=== PATIENT | male | born 1975 | race Caucasian/White ===

== ENCOUNTER 2020-02-19 06:53 | Outpatient (NON) | payer OTHER, SELFPAY ==
[2020-02-20 01:48] LABS: SARS-CoV-2 RNA PCR Negative
== END 2020-02-19 06:54 ==
LOC: ANHCOVIDDT 07:23
PROVIDERS: PCP Family Medicine; Visit Provider Family Medicine
DX: R68.89 Other general symptoms and signs (principal); Z20.828 Contact with and (suspected) exposure to other viral communicable diseases
CPT/HCPCS: 87635; C9803; U0003

== ENCOUNTER → 2020-12-09 16:11 | Outpatient (CLI) | payer OTHER, SELFPAY ==
--- NOTE | ~2020-12-09 | XR_ITS ---
XR shoulder LT min 2V DATE: 12/09/2020 16:41 INDICATION: Left shoulder pain TECHNIQUE: 4 views COMPARISON: None FINDINGS: No fracture or dislocation, periosteal reaction or bone destruction or abnormal soft tissue calcification. Mild levoscoliosis of the upper thoracic spine. IMPRESSION: No significant abnormality of the left shoulder Reviewed, dictated and finalized at location A.
--- NOTE | ~2020-12-09 | XR_ITS ---
XR chest 2V DATE: 12/09/2020 16:41 INDICATION: Shortness of breath TECHNIQUE: 2 views COMPARISON: None FINDINGS: Normal heart size. No hilar or mediastinal enlargement. No pulmonary infiltrate or consolid ation, pleural effusion or pulmonary vascular congestion or pneumothorax. IMPRESSION: No active cardiopulmonary disease Reviewed, dictated and finalized at location A.
== END ==
PROVIDERS: PCP Family Medicine; Visit Provider Physician Assistant
DX: R06.02 Shortness of breath (principal); M25.512 Pain in left shoulder
CPT/HCPCS: 71046; 73030

== ENCOUNTER 2020-12-09 16:45 | Outpatient (CLI) | payer OTHER, SELFPAY ==
[2020-12-09 17:10] LABS: Basophils Absolute Auto 0.1 K/mm3 (0.0-0.1); Basophils Percent Auto 0.8 % (0.2-1.2); Eosinophils Absolute Auto 0.9 K/mm3 (0-0.3); Eosinophils Percent Auto 10.7 % (0-4.4); Hematocrit 44.7 % (42.0-52.0); Hemoglobin 15.4 g/dL (14.0-18.0); Immature Granulocyte Absolute 0.02 K/mm3 (0.00-0.031); Immature Granulocyte Percent A 0.3 % (0-0.5); Lymphocytes Absolute Auto 2.29 K/mm3 (0.9-3.2); Lymphocytes Percent Auto 28.7 % (18.3-44.2); Mean Corpuscular HGB Conc 34.5 g/dl (32-36); Mean Corpuscular Hemoglobin 31.6 pg (26-34); Mean Corpuscular Volume 91.8 fl (80-100); Monocytes Absolute Auto 0.6 K/mm3 (0.1-0.6); Neutrophils Absolute Auto 4.1 K/mm3 (1.3-6.7); Neutrophils Percent Auto 51.5 % (45.5-73.1); Platelet Count Result 246 k/mm3 (150-375); Red Blood Count 4.87 M/mm3 (4.6-6.20); Red Cell Distribution Width 12.6 % (11.5-14.5)
[2020-12-09 17:20] LABS: Alanine Aminotransferase 21 U/L (4-50); Albumin Level 4.2 g/dL (3.5-5.1); Alkaline Phosphatase 52 U/L (38-126); Anion Gap 9 mmol/L (8-16); Aspartate Amino Transferase 34 U/L (17-59); Bilirubin,Total 0.6 mg/dL (0.2-1.3); Blood Urea Nitrogen 18 mg/dL (9-20); Calcium 9.1 mg/dL (8.4-10.2); Carbon Dioxide 26 mmol/L (22-30); Chloride 104 mmol/L (98-107); Cholesterol 124 mg/dL (0-200); Estimated Glomerular Filt Rate > 60; Glucose 87 mg/dL (65-110); HDL Direct 49 mg/dL; Potassium 4.4 mmol/L (3.4-5.0); Sodium 139 mmol/L (137-145); Triglycerides 50 mg/dL (<150)
[2020-12-09 17:30] LABS: LDL Cholesterol Direct 51 mg/dL
== END 2020-12-09 16:46 | disposition home or self-care (01) ==
PROVIDERS: PCP Family Medicine; Visit Provider Physician Assistant
DX: I10 Essential (primary) hypertension (principal); J45.41 Moderate persistent asthma with (acute) exacerbation; R06.02 Shortness of breath; Z00.00 Encounter for general adult medical examination without abnormal findings; Z13.220 Encounter for screening for lipoid disorders
CPT/HCPCS: 36415; 80053; 80061; 84443; 85025

== ENCOUNTER 2021-03-14 00:56 | Day surgery (SDC) | payer OTHER, SELFPAY ==
[2021-03-09 16:09] VITALS: BMI 28.3
--- NOTE | 2021-03-09 16:21 | PC.NURSE ---
Report to the Outpatient Waiting Room, entrance under the green pavilion located off [facility], at time _1030 on date _05/15/20 . OR Time: __1230 . - You and your visitor will be asked a series of questions to screen for COVID 19 for your protection. - A mask is required within the hospital. - Only one visitor is allowed at this time. Patient visitors will be guided where to wait when not with patient. Preoperative COVID Testing Requirements: No COVID Test needed if: (proof is required; if not received patient will have Rapid Test prior to entry) - Patient has received COVID Vaccine at least 14 days prior to procedure date or - Patient has positive COVID test result within last 90 days of surgery date. COVID Test needed if above criteria is not met If not COVID vaccinated a COVID test must be conducted within 72 hours of surgery and patient is asked to isolate self from time of testing until procedure. You will go to the [facility] for your COVID testing. The [facility] site is located at the corner of [address] [facility]. You will only be called if COVID results are positive and your surgeon may reschedule your elective surgery date. Patients may have clear liquids (water, carbonated beverages, clear teas, apple juice) until 3 hours prior to surgery with a maximum of 20 ounces. - No food from midnight until time of surgery - Infants may have breast milk until 4 hours before surgery, formula 6 hours prior to surgery. - Children will be allowed to drink immediately following surgery. If applicable, please bring a bottle or sippy cup to assist with drinking. Juice, water, soda, and popsicles are readily available. For infants on formula, please bring formula the day of surgery. Pacifiers are allowed. Take the following medications with a SIP of water the morning of surgery: _ADVAIR DISKUS, ALBUTEROL INHALER PRN, FLONASE INHALER PRN Medications to discontinue per physician ALL NSAIDS/IBUPROFEN 7 DAYS PREOP Date to take last dose NOW, 03/09/21 Please no make-up, nail ugandan, hairspray, perfume, deodorant, or body powder the day of surgery. No jewelry (including any body piercings) or valuables the day of surgery, leave them at home. Please take a shower or bath the night before, or the morning of, surgery with an antibacterial soap. Wear comfortable, loose fitting clothing. Children are encouraged to wear pajamas. - Jewelry must be removed prior to entering the operating room. Rings and piercings that are not removed may be cut off. - The hospital will not accept responsibility for valuables. - Please leave all valuables, including medications, at home the day of surgery. If you are going home after surgery, a licensed bus driver/monitor must drive you home. - NO public transportation without another adult. - We recommend that an adult stay with you for 24 hours following discharge. - We also recommend that you do not drive, make important decision, drink alcoholic beverages, or take any drugs that were not prescribed by your health care provider for at least 24 hours after your discharge time. For Pediatric surgeries, we recommend two adults accompany the child home (only one inside the building at this time). Follow any additional instructions given to you from your surgeon. Telephone instructions given to ___PATIENT and asked if any additional questions and then verbalized understanding. Patient advised to call surgeon office or pre surgery nurse liaison [phone] if any additional questions.
[2021-03-14] VITALS (7 sets, daily range): BP systolic 115–141; BP diastolic 66–78; PULSE 48–74; RESP 10–20; TEMP 36.4–36.6; O2SAT 95–99; BMI 29.7
--- NOTE | 2021-03-14 09:04 | P.PNAN_ITS ---
Anes - Initial Pre Proc Eval Procedure: Operation Date: 03/14/21 12:30 Proposed Procedures p Left Shoulder Arthroscopic Subacromial Decompression Distal Clavicle Excision - Mark Borges MD Date/Time: 03/14/21 09:04 Surgeon: Mark Borges MD Pre Op Diagnosis: Impingement Syndrome Left Shoulder Patient Data Age: 45 Gender: M Height: 1.88 m Weight: 100 kg Allergies Allergy/AdvReac Type Severity Reaction Status Date / Time No Known Allergies Allergy Verified 03/14/21 10:39 Home Medications Medication Instructions Recorded Confirmed Type cetirizine 10 mg tablet 10 mg PO DAILY PRN 02/16/19 03/09/21 History fluticasone propionate 50 1 spray NASAL DAILY PRN 02/16/19 03/09/21 History mcg/actuation nasal spray,suspension albuterol sulfate 90 mcg/actuation 2 puff INHALATION Q4H PRN #8.5 g 12/09/20 03/09/21 Rx aerosol inhaler fluticasone propion-salmeterol 1 inh INHALATION QAM 03/09/21 03/14/21 History [Advair Diskus] ibuprofen-diphenhydramine HCl 2 cap PO HS PRN 03/09/21 03/09/21 History [Ibuprofen PM] montelukast 10 mg PO DAILY 03/09/21 03/09/21 History Patient hx anesthesia problems: none Family hx anesthesia problems: none Results Review: All pre-operative results and documents have been reviewed as part of the pre-operative evaluation. [facility] Past Medical History Medical History (Updated 03/14/21 @ 09:05 by Dharmesh Padilla MD) Allergic asthma History of rotator cuff strain BL Left medial knee pain Meniscal injury Overweight (BMI 25.0-29.9) Surgical History Surgical History History of surgical removal of meniscus of knee Social History Social History Social History: Smoking status: Never smoker Second hand tobacco smoke exposure: No Alcohol intake: current Drinks per week: 2 Alcohol use details: Occasionally Substance use: never Substance use type: does not use Living arrangements: with family Additional living arrangements comments: SPOUSE Gender identity (if verbalized by the patient): Male Sexual Orientation (if Verbalized by the Patient): Straight or Heterosexual Spiritual care concerns: No Anes - Eval Final PreProcedure Day of Procedure 03/14/21 09:04 Patient weight: overweight Heart: regular rate and rhythm Lungs: clear to auscultation and normal air movement Airway: Mallampati scale class II Neurological: alert and oriented Last oral intake: >/= 8 hours ASA classification: II Emergent: no Anesthetic plan: proceed Anesthesia type and monitoring: general ETT Results Review: All pre-operative results and documents have been reviewed as part of the pre-operative evaluation. Informed Consent: The patient's anesthetic plan and its attendant risks and benefits were discussed with the patient/family/POA. Questions were solicited and answers provided to the satisfaction of the patient/family/POA.
--- NOTE | 2021-03-14 09:05 | WPDANESPNB ---
Anes - Peripheral Nerve Block Date/Time: 03/14/21 09:05 I have discussed with the patient/family/POA the placement of a peripheral nerve block for post-operative pain management, including associated risks, benefits, complications, and side effects. Alternative methods of post-operative analgesia were detailed. Questions were solicited and answers provided to the satisfaction of the patient/family/POA. Time-Out: A pre-procedural Time-Out was completed immediately before starting the procedure and confirmed: Patient Identification, Site, Procedure, Patient Position and the Availability of Requisite Equipment. Clinical Indications: Acute post-operative pain management requested by the operative surgeon. Nerve Block Insertion Note Anes-nerve block: supraclavicular left Patient position: supine Skin prep: chlorhexidine Needle: 22 gauge, stimulating, insulated echogenic needle. Needle length: 80 mm Technique: ultrasound (in plane) Injectate: bupivacaine 0.5% with epi 5 mcg/ml (20cc) Observations: tolerated well Complications: none Procedure start time:: 1110 Procedure end time:: 1115
--- NOTE | 2021-03-14 10:16 | WPDHPUPDATE1 ---
History and Physical Update Update Date/Time: 03/14/21 10:16 History and Physical has been reviewed, including an updated exam of the patient. There are NO changes in the patient's condition. Risks, benefits, and alternatives have been discussed and questions answered. Patient agrees to proceed with procedure.
[2021-03-14] MEDS: LACTATED RINGERS 1,000 ML 30 ML IV CONT ×2 (11:08→13:09)
[2021-03-14] MEDS: KETOROLAC 15 MG/ML VIAL (*BKC) IV PUSH (11:09)
[2021-03-14] MEDS: ACETAMINOPHEN 500 MG TABLET 1000 MG PO (11:09)
[2021-03-14] MEDS: ceFAZolin 2 GM/D5W 50 ML 2 GM/50 ML BAG IVPB (11:20)
[2021-03-14] MEDS: BUPIVACAINE HCL 0.5% PF 30 ML VIAL INFILTRATE (12:08)
--- NOTE | 2021-03-14 13:17 | SUR.PHASEI ---
REPORT TO Jose FAM RN
--- NOTE | 2021-03-14 14:19 | W.PM.PROC2 ---
Procedure Note - Detailed Date of Procedure 03/14/21 Pre-op Diagnosis 1.Impingement Syndrome Left Shoulder 2. Acromioclavicular joint arthrosis. Post-op Diagnosis same Procedure Performed 1. Arthroscopic distal clavicle excision 2. Arthroscopic subacromial decompression Surgeon Mark Borges MD Irrigation Tax Assessor Collector Maryuri Bustos PA-C Anesthesia general and regional ( interscalene block) Indications Persistent pain at the AC joint. 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 Also subacromial impingement with type 2 acromion. Description of Procedure Preoperative antibiotics were given. An interscalene block was administered in the preoperative area. The patient was bought brought to the operating room. A general anesthetic was administered. The patient was carefully positioned in the beach chair position. The head and neck were carefully positioned. The non operative extremity was also carefully positioned. The shoulder was prepped and draped in the usual sterile fashion. Examination was performed. Standard posterior and anterior arthroscopic portals were established. Inflow achieved with the arthroscopic pump using saline and epinephrine. The glenohumeral joint was carefully inspected. There were no significant findings. Attention was turned to the subacromial space. A complete bursectomy was performed. The rotator cuff appeared normal. The downsloping acromion was treated with acromioplasty. The acromioclavicular joint was exposed with the radiofrequency probe and approximately 8-12 mm of distal clavicle was excised with the arthroscopic bur. Particular care and attention was paid to the superior ligaments which were carefully cleared of any bony remnants. The arthroscopic instruments were removed. The wounds were closed with 3-0 Monocryl subcuticular suture and steri strips. There were no complications. A sling was applied and the patient brought to the recovery room. Physician insurance account assistant, Maryuri Bustos PA-C, required for surgery; including patient positioning, draping, arthroscopic camera operation, maintaining instrument position,[ suture retrieval,] wound closure, and dressing and sling placement. Estimated Blood Loss 5 Pathology none sent Complications No immediate complications Condition stable Disposition PACU
== END 2021-03-14 14:55 | disposition home or self-care (01) ==
PROVIDERS: PCP Family Medicine; Visit Provider Orthopaedic Surgery
PROC: (CPT 29805; principal; 2021-03-14 12:30)
DX: M75.42 Impingement syndrome of left shoulder (principal); M19.012 Primary osteoarthritis, left shoulder; G89.18 Other acute postprocedural pain; J45.909 Unspecified asthma, uncomplicated; Z79.51 Long term (current) use of inhaled steroids
CPT/HCPCS: 29826; 29824; 64415; A4565; A9270; J0690; J1100; J1885; J2250; J2405; J2704; J2710; J3010; J7120

== ENCOUNTER 2021-06-20 15:56 | Outpatient (CLI) | payer OTHER, SELFPAY ==
--- NOTE | ~2021-06-20 | CT_ITS ---
EXAMINATION: CTA chest PE protocol DATE: 06/20/2021 16:43 INDICATION: Hypoxemia. TECHNIQUE: Computed tomography angiography (CTA) of the chest was performed with 100 mL Omnipaque-350 intravenous contrast timed to evaluate the pulmonary arteries. Coronal maximum intensity projection 3D-reconstructions were created by the technologist. Automated exposure control and iterative reconst ruction technique were employed. The dose-length product was 519.84 mGy-cm. COMPARISON: None. FINDINGS: There is mild scarring at the lung apices. There is mild atelectasis bilaterally. There is material in the bronchi in the lower lobes and lingula. There are areas of air-trapping in the lower lobes. No pleural effusion. The heart size is normal. No pericardial effusion. There is no pulmonary embolus. There is mild thoracic spondylosis. IMPRESSION: 1. No pulmonary embolus. 2. Material in the bronchi in the lower lobes and lingula, which may be mucous plugging or aspirated material. Reviewed, dictated and finalized at location A.
== END 2021-06-20 15:57 | disposition home or self-care (01) ==
PROVIDERS: PCP Family Medicine; Visit Provider Family Medicine
DX: R09.02 Hypoxemia (principal)
CPT/HCPCS: 71275; Q9967

== ENCOUNTER 2021-11-01 09:17 | Outpatient (CLI) | payer OTHER, SELFPAY ==
--- NOTE | 2021-11-01 15:00 | WPDPFTINT ---
PFT Procedure Performed PFT Procedure Performed Spirometry with Pre/Post Bronchodilator Plethysmography (Lung Vol) Diffusing Cap (DLCO) Flow Vol Loop PFT Interpretation Lung volumes were measured with the body plethysmography method. Lung volumes are unremarkable. Spirometry showed normal expiratory flow rates and a normal FEV1 to FVC ratio 72%. Following administration of a bronchodilator, there was no significant increase in the expiratory flow rates. Lung diffusion capacity is within the normal range. Flow volume loop is unremarkable. Impression: Spirometry, lung volumes, and lung diffusion capacity all within the normal range
== END 2021-11-01 09:18 | disposition home or self-care (01) ==
PROVIDERS: PCP Family Medicine; Visit Provider Internal Medicine Pulmonary Disease
DX: R06.00 Dyspnea, unspecified (principal)
CPT/HCPCS: 94060; 94726; 94729

== ENCOUNTER 2022-06-20 15:16 | Outpatient (CLI) | payer OTHER, SELFPAY ==
[2022-06-23 20:04] LABS: Immunoglobulin A 399 mg/dL (47-310); Immunoglobulin G 868 mg/dL (600-1640); Immunoglobulin M 57 mg/dL (50-300)
== END 2022-06-20 15:17 | disposition home or self-care (01) ==
LOC: ANHLAB 15:17
PROVIDERS: Visit Provider Physician Assistant
DX: J32.9 Chronic sinusitis, unspecified (principal)
CPT/HCPCS: 36415; 82784

== ENCOUNTER 2022-06-26 15:06 | Outpatient (CLI) | payer OTHER, SELFPAY ==
[2022-06-26 15:24] LABS: Basophils Absolute Auto 0.1 K/mm3 (0.0-0.1); Basophils Percent Auto 0.9 % (0.2-1.2); Eosinophils Absolute Auto 0.3 K/mm3 (0-0.3); Eosinophils Percent Auto 4.5 % (0-4.4); Hematocrit 43.4 % (42.0-52.0); Hemoglobin 14.6 g/dL (14.0-18.0); Immature Granulocyte Absolute 0.01 K/mm3 (0.00-0.031); Immature Granulocyte Percent A 0.2 % (0-0.5); Lymphocytes Absolute Auto 2.23 K/mm3 (0.9-3.2); Lymphocytes Percent Auto 34.3 % (18.3-44.2); Mean Corpuscular HGB Conc 33.6 g/dl (32-36); Mean Corpuscular Hemoglobin 30.9 pg (26-34); Mean Corpuscular Volume 91.8 fl (80-100); Mean Platelet Volume 9.9 fl (7.4-10.4); Monocytes Absolute Auto 0.5 K/mm3 (0.1-0.6); Monocytes Percent Auto 7.8 % (2.6-8.5); Neutrophils Absolute Auto 3.4 K/mm3 (1.3-6.7); Neutrophils Percent Auto 52.3 % (45.5-73.1); Platelet Count Result 251 k/mm3 (150-375); Red Blood Count 4.73 M/mm3 (4.6-6.20); Red Cell Distribution Width 12.5 % (11.5-14.5); White Blood Count 6.5 K/mm3 (4.5-10.0)
== END 2022-06-26 15:07 | disposition home or self-care (01) ==
PROVIDERS: Visit Provider Physician Assistant
DX: J45.909 Unspecified asthma, uncomplicated (principal)
CPT/HCPCS: 36415; 85025

== ENCOUNTER 2022-08-01 07:35 | Outpatient (CLI) | payer OTHER, SELFPAY ==
[2022-08-01 08:32] LABS: Alanine Aminotransferase 25 U/L (6-50); Albumin Level 4.1 g/dL (3.5-5.1); Alkaline Phosphatase 50 U/L (38-126); Anion Gap 6 mmol/L (8-16); Aspartate Amino Transferase 36 U/L (17-59); Bilirubin,Total 0.7 mg/dL (0.2-1.3); Blood Urea Nitrogen 15 mg/dL (9-20); Calcium 8.6 mg/dL (8.4-10.2); Carbon Dioxide 27 mmol/L (22-30); Chloride 103 mmol/L (98-107); Cholesterol 137 mg/dL (0-200); Estimated Glomerular Filt Rate > 60; Glucose 96 mg/dL (65-110); HDL Direct 47 mg/dL; Potassium 4.1 mmol/L (3.4-5.0); Sodium 136 mmol/L (137-145); Triglycerides 59 mg/dL (<150)
[2022-08-01 08:44] LABS: LDL Cholesterol Direct 64 mg/dL
== END 2022-08-01 07:36 | disposition home or self-care (01) ==
PROVIDERS: PCP Family Medicine; Visit Provider Family Medicine
DX: E78.2 Mixed hyperlipidemia (principal); I10 Essential (primary) hypertension; B35.1 Tinea unguium
CPT/HCPCS: 36415; 80053; 80061

== ENCOUNTER 2022-09-07 02:55 | Day surgery (SDC) | payer OTHER, SELFPAY ==
[2022-08-29 13:08] VITALS: BMI 28.3
--- NOTE | 2022-09-06 09:22 | PM.HPGS ---
History of Present Illness History of Present Illness Consent: Risks, benefits, and alternatives have been discussed and questions answered. Patient agrees to proceed with procedure. Chief complaint: neoplasm screening Narrative: Bello Mahajan is a 46 year old male referred for colon cancer screening. 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 Orthopedic aftercare Other specified arthritis, left shoulder Overweight (BMI 25.0-29.9) Seborrheic keratosis Tendinitis of left rotator cuff Surgical History Surgical History History of surgical removal of meniscus of knee Social History Social History Social History: Smoking status: Never smoker Second hand tobacco smoke exposure: No Alcohol intake: current Drinks per week: 1 Alcohol use details: Occasionally Substance use: never Substance use type: does not use Lack of Transportation: No Lack of Food: Never True Current Housing: I Have Housing Concerned About Future Housing: No Difficulty Paying Gas/Electric Bills: No Difficulty Paying for Meds: No Currently Unemployed: No Education: Decline to Answer Difficulty w/ Childcare or Family Care: No Living arrangements: with family Additional living arrangements comments: SPOUSE Occupation/Education: occupation Gender identity (if verbalized by the patient): Male Sexual Orientation (if Verbalized by the Patient): Straight or Heterosexual Spiritual care concerns: No Meds Home Medications and Allergies Home Medications Medication Instructions Recorded Confirmed Type celecoxib 200 mg capsule 200 mg PO DAILY #90 caps 05/15/21 08/29/22 Rx cetirizine 10 mg capsule (Zyrtec) 10 mg PO DAILY PRN allergies 06/20/22 08/29/22 History fluticasone propionate 50 1 spray intranasal DAILY 06/20/22 08/29/22 History mcg/actuation nasal spray,suspension (Flonase Allergy Relief) fluticasone fur. 200 mcg-umeclid 1 inh inhalation DAILY 08/22/22 08/29/22 History 62.5 mcg-vilant 25 mcg inhalat.powder (Trelegy Ellipta) terbinafine HCl 250 mg tablet 250 mg PO DAILY 08/22/22 08/29/22 History Allergies Allergy/AdvReac Type Severity Reaction Status Date / Time No Known Allergies Allergy Verified 09/07/22 10:45 Exam Resp: Auscultation: clear to auscultation bilaterally Cardio: Rate: regular rate Rhythm: regular rhythm GI: GI Palp: Yes Soft to palpation and No Tenderness to palpation present (GI) Assessment and Plan Assessment and plan (1) Colon cancer screening: Code(s): Z12.11 - Encounter for screening for malignant neoplasm of colon Status: Acute Assessment and Plan: Colonoscopy with possible biopsy or polypectomy or cautery or injection of substances.
[2022-09-07 10:13] VITALS: BP 121/48; PULSE 61; RESP 20; TEMP 36.4; O2SAT 99
[2022-09-07] MEDS: LACTATED RINGERS 1,000 ML 150 ML IV CONT (10:56)
--- NOTE | 2022-09-07 10:57 | WPDANESEPPF ---
Anes - Initial Pre Proc Eval Procedure: Operation Date: 09/07/22 11:30 Proposed Procedures p Screening Colonoscopy - Homer Naidu MD Date/Time: 09/07/22 10:57 Surgeon: Homer Naidu MD Pre Op Diagnosis: neoplasm screening Patient Data Age: 46 Gender: M Height: 1.88 m Weight: 100.9 kg Last Vital Signs Temp 36.4 C 09/07/22 10:13 Pulse 61 09/07/22 10:13 Resp 20 09/07/22 10:13 BP 121/48 L 09/07/22 10:13 Pulse Ox 99 09/07/22 10:13 O2 Del Method Room Air 09/07/22 10:13 Allergies Allergy/AdvReac Type Severity Reaction Status Date / Time No Known Allergies Allergy Verified 09/07/22 10:45 Home Medications Medication Instructions Recorded Confirmed Type celecoxib 200 mg capsule 200 mg PO DAILY #90 caps 05/15/21 08/29/22 Rx cetirizine 10 mg capsule (Zyrtec) 10 mg PO DAILY PRN allergies 06/20/22 08/29/22 History fluticasone propionate 50 1 spray intranasal DAILY 06/20/22 08/29/22 History mcg/actuation nasal spray,suspension (Flonase Allergy Relief) fluticasone fur. 200 mcg-umeclid 1 inh inhalation DAILY 08/22/22 08/29/22 History 62.5 mcg-vilant 25 mcg inhalat.powder (Trelegy Ellipta) terbinafine HCl 250 mg tablet 250 mg PO DAILY 08/22/22 08/29/22 History Patient hx anesthesia problems: none Family hx anesthesia problems: none Results Review: All pre-operative results and documents have been reviewed as part of the pre-operative evaluation. 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 Orthopedic aftercare Other specified arthritis, left shoulder Overweight (BMI 25.0-29.9) Seborrheic keratosis Tendinitis of left rotator cuff Surgical History Surgical History History of surgical removal of meniscus of knee Social History Social History Social History: Smoking status: Never smoker Second hand tobacco smoke exposure: No Alcohol intake: current Drinks per week: 1 Alcohol use details: Occasionally Substance use: never Substance use type: does not use Lack of Transportation: No Lack of Food: Never True Current Housing: I Have Housing Concerned About Future Housing: No Difficulty Paying Gas/Electric Bills: No Difficulty Paying for Meds: No Currently Unemployed: No Education: Decline to Answer Difficulty w/ Childcare or Family Care: No Living arrangements: with family Additional living arrangements comments: SPOUSE Occupation/Education: occupation Gender identity (if verbalized by the patient): Male Sexual Orientation (if Verbalized by the Patient): Straight or Heterosexual Spiritual care concerns: No Anes - Eval Final PreProcedure Day of Procedure 09/07/22 10:57 Patient weight: overweight Heart: regular rate and rhythm Lungs: clear to auscultation and normal air movement Airway: Mallampati scale class II Neurological: alert and oriented Last oral intake: >/= 8 hours ASA classification: II Emergent: no Anesthetic plan: proceed Anesthesia type and monitoring: general GIVS Results Review: All pre-operative results and documents have been reviewed as part of the pre-operative evaluation. Informed Consent: The patient's anesthetic plan and its attendant risks and benefits were discussed with the patient/family/POA. Questions were solicited and answers provided to the satisfaction of the patient/family/POA.
[2022-09-07 11:41] VITALS: BP 100/70; PULSE 69; RESP 15; O2SAT 99
[2022-09-07 11:51] VITALS: BP 121/82; PULSE 66; RESP 24; O2SAT 97
[2022-09-07 12:01] VITALS: BP 122/84; PULSE 68; RESP 20; O2SAT 97
== END 2022-09-07 12:07 | disposition home or self-care (01) ==
PROVIDERS: PCP Family Medicine; Visit Provider Internal Medicine Gastroenterology
PROC: 0DJD8ZZ Inspection of Lower Intestinal Tract, Via Natural or Artificial Opening Endoscopic (ICD-10-PCS; CPT 45378; principal; 2022-09-07 11:30)
DX: Z12.11 Encounter for screening for malignant neoplasm of colon (principal); J45.909 Unspecified asthma, uncomplicated; M15.9 Polyosteoarthritis, unspecified; Z79.51 Long term (current) use of inhaled steroids
CPT/HCPCS: 45378; J2704; J7120

== ENCOUNTER 2022-10-26 09:34 | Outpatient (CLI) | payer OTHER, SELFPAY ==
--- NOTE | 2022-10-26 09:57 | ECHO_ITS ---
Patient Info Name: Bello Mahajan Age: 46 years : 1975 Gender: Male Ht: 74 in Wt: 225 lbs BSA: 2.33 m2 HR: 51 bpm BP: 118 / 68 mmHg Technical Quality: Good Exam Date: 10/26/2022 10:07 AM Exam Location: [facility] Patient Status: Outpatient Admit Date: 10/26/2022 Staff Ordering Physician: Batsheva Covarrubias PA-C Lift Supervisor: Valerie Momin RDCS Attending Provider: Batsheva Covarrubias PA-C Exam Type: CA echo doppler color flow Study Info Indications R06.02 - Shortness of breath Complete two-dimensional, color flow and Doppler transthoracic echocardiogram is performed. Summary 1. Complete two-dimensional, color flow and Doppler transthoracic echocardiogram is performed. 2. Left ventricular chamber dimension is mildly enlarged. 3. Left ventricular systolic function is normal, estimated at 60-65%. 4. The left ventricular diastolic function is normal. 5. E/e' 4 is not elevated. 6. Right atrial chamber dimension is mildly enlarged. 7. There is mild mitral valve regurgitation. 8. There is trace tricuspid valve regurgitation. 9. No pulmonary hypertension, estimated pulmonary arterial systolic pressure is 30 mmHg. 10. There is trace pulmonic regurgitation. Left Ventricle E/e' 4 is not elevated. Left ventricular chamber dimension is mildly enlarged. Left ventricular systolic function is normal, estimated at 60-65%. The left ventricular diastolic function is normal. Right Ventricle Right ventricular chamber dimension is normal. Right ventricular systolic function is normal. Left Atria Left atrial chamber dimension is normal. Right Atria Right atrial chamber dimension is mildly enlarged. Aortic Valve The aortic valve is trileaflet. There is no aortic valve stenosis. There is no aortic valve regurgitation. Pulmonic Valve There is trace pulmonic regurgitation. Mitral Valve There is no mitral valve stenosis. There is mild mitral valve regurgitation. Tricuspid Valve There is trace tricuspid valve regurgitation. No pulmonary hypertension, estimated pulmonary arterial systolic pressure is 30 mmHg. Pericardium/Pleural There is no pericardial effusion. Inferior Vena Cava Normal inferior vena cava with >50% collapse upon inspiration consistent with normal right atrial pressure, 5 mmHg. Aorta The aortic root size at the sinus of Valsalva is normal. Left Ventricular Outflow Tract Name Value Normal LVOT 2D LVOT Diameter 2.2 cm LVOT Doppler LVOT Peak Gradient 4 mmHg LVOT Mean Gradient 3 mmHg LVOT VTI 25 cm LVOT VTI/AV VTI Ratio 0.9 LVOT Stroke Volume 92 ml LVOT CO 17.1 l/min LVOT CI 7.3 l/min/m2 Pulmonic Valve Name Value Normal RVOT Doppler RVOT Peak Gradient 1 mmHg PV Doppler ---
== END 2022-10-26 09:35 | disposition home or self-care (01) ==
LOC: ANHCARD 09:35
PROVIDERS: PCP Family Medicine; Visit Provider Physician Assistant
DX: R06.02 Shortness of breath (principal); I34.0 Nonrheumatic mitral (valve) insufficiency
CPT/HCPCS: 93306

== ENCOUNTER 2022-11-19 16:26 | Outpatient (CLI) | payer OTHER, SELFPAY ==
[2022-11-19 17:01] LABS: Alanine Aminotransferase 23 U/L (6-50); Aspartate Amino Transferase 44 U/L (17-59)
== END 2022-11-19 16:27 | disposition home or self-care (01) ==
LOC: ANHLAB 16:27
PROVIDERS: PCP Family Medicine; Visit Provider Podiatrist Foot & Ankle Surgery
DX: B35.1 Tinea unguium (principal)
CPT/HCPCS: 36415; 84450; 84460

== ENCOUNTER 2025-03-13 16:10 | Emergency (ER) | payer OTHER, SELFPAY ==
--- OUTSIDE RECORDS SUMMARY | 2024-06-17 11:30 | XMS_ITS ---
Author Organization [facility] [place] ([address]) Address [address] [place] [address] Care Team Providers Care Skilled Trades Teacher Name Role Phone Dr. Tricia Mccabe Primary Care Provider Un available Diana Luo Unavailable [phone] REASON FOR VISIT SCIT (Aeroallergen) Encounters Encounter Location Date Provider Diagnosis [facility] [address] [place] [address] 06/17/2024 Diana Luo Plan Of Treatment No Information Progress Notes * Aaron IBARRAOB:1975 (49 yo M)Acc No.[id number]:06/17/2024 SCIT-Aeroallergen Patient: Bello COOPER Provider: Heidi Luo MD :1975 A ge:48 Y S ex:Male Date:06/17/2024 Address:[address] [place] [id number] Pcp:Dr. Tricia Mccabe Subjective: * Chief Complaints: * 1 . SCIT (Aeroallergen). * Medical History: Objective: * Vitals: Assessment: Plan: * Treatment: * Billing Information: * Visit Code: * Procedure Codes: * Electronic signature of Natayla Luo MD on 03/13/2025 at 06:04 PM UNLOADING CHECKER Sign off status: Pending * Provider: Heidi Luo MD Date: 0 06/17/2024 Generated for Ede mccray/Johnny/Ranjan on: 1 05/14/2024 06:04 PM UNLOADING CHECKER
--- OUTSIDE RECORDS SUMMARY | 2024-07-29 10:00 | XMS_ITS ---
Author Organization [facility] [place] ([address]) Address [address] [facility] [address] [place] [address] Care Team Providers Care Statuary Painter Name Role Phone Dr. Tricia Mccabe Primary Care Provider Un available Diana Luo Unavailable [phone] REASON FOR VISIT SCIT - Traditional Schedule Allergy Immunotherapy Encounters Encounter Location Date Provider Diagnosis [facility] [address] [facility] [address] [place] [address] 07/29/2024 Diana Luo Allergic rhinitis du e to pollen J30.1 ; Other allergic rhinitis J30.89 ; Allergic rhinitis due to animal (cat) (dog) hair and dander J30.81 and Other chronic allergic conjunctivitis H10.45 Assessments Encounter Date Diagnosis (ICD Code) Assessment Notes Treatment Notes Treatment Clinical Notes Section Notes 07/29/2024 Allergic rhinitis due to pollen (ICD-10 - J30.1) 07/29/2024 Other allergic rhinitis (ICD-10 - J30.89) 07/29/2024 Allergic rhinitis due to animal (cat) (dog) hair and dander (ICD-10 - J30.81) 07/29/2024 Other chronic allergic conjunctivitis (ICD-10 - H10.45) Plan Of Treatment Next Appt Details Follow Up: As scheduled, Jovana son: Progress Notes * Aaron IBARRAOB:1975 (49 yo M)Acc No.[id number]:07/29/2024 SCIT-Aeroallergen Patient: Bello COOPER Provider: Heidi Luo MD :1975 A ge:48 Y S ex:Male Date:07/29/2024 Address:[address] [place], [place] [phone] Pcp:Dr. Tricia Mccabe Subjective: * Chief Complaints: * 1 . SCIT - Traditional Schedule Allergy Immunotherapy. * HPI: * Introduction: The patient is here for scheduled immunotherapy. Please see the attached specialty form regarding the specifics of the administration of these vaccines. As per our protocol, they must undergo a screening health questionnaire (medication changes, reaction(s) to last immunotherapy dose(s), current health status, ACT (if appropriate), self-injectable epinephrine on patient(?) and peak flow (if appropriate)). Also, the patient must wait in our office for 30 minutes after receiving the vaccine(s). Furthermore, every patient must have an epinephrine pen (self-injectable) with them at the time of administration--and carry if for the following 1.5 hours after they leave our office. The patient must also have taken their antihistamine the day of the injection, preferably 2 hours prior. The consent form for SCIT (subcutaneous immunotherapy) is on file. * Medical History: Objective: * Vitals: Assessment: * Assessment: 1. A llergic rhinitis due to pollen - J30.1 (Primary) 2 . O ther allergic rhinitis - J30.89 3 . A llergic rhinitis due to animal (cat) (dog) hair and dander - J30.81 4 . O ther chronic allergic conjunctivitis - H10.45 Plan: * Treatment: * Procedure Codes: 9 5117 IMMUNOTHERAPY INJECTIONS * Preventive Medicine: Counseling: E xercise A void heavy lifting on days of allergy immunotherapy. M edication instruction: I njectable epinephrine education and instruction w/ discussion of signs and symptoms of anaphylaxis and reasons to seek urgent or emergent care, Watch for side effects of prescribed medications. E ducation: A ble to return demonstration of self-injectable epinephrine. * Follow Up: A s scheduled * Billing Information: * Visit Code: * Procedure Codes: 00259 IMMUNOTHERAPY INJECTIONS. * Electronic signature of Natalya Luo MD on 03/13/2025 at 06:04 PM AUCTION ASSISTANT Sign off status: Pending * Provider: Heidi Luo MD Date: 0 07/29/2024 Generated for Ede mccray/Johnny/Ranjan on: 1 05/14/2024 06:04 PM AUCTION ASSISTANT History and Physical Notes * HPI (History of Present Illness) Category Sub-Category Detail Notes Category Not es *Introduction The patient is here for scheduled immunotherapy. Please see the attached specialty form regarding the specifics of the administration of these vaccines. As per our protocol, they must undergo a screening health questionnaire (medication changes, reaction(s) to last immunotherapy dose(s), current health status, ACT (if appropriate), self-injectable epinephrine on patient(?) and peak flow (if appropriate)). Also, the patient must wait in our office for 30 minutes after receiving the vaccine(s). Furthermore, every patient must have an epinephrine pen (self-injectable) with them at the time of administration--and carry if for the following 1.5 hours after they leave our office. The patient must also have taken their antihistamine the day of the injection, preferably 2 hours prior. The consent form for SCIT (subcutaneous immunotherapy) is on file.
--- OUTSIDE RECORDS SUMMARY | 2024-11-26 11:30 | XMS_ITS ---
Author Organization [facility] [place] ([address]) Address [address] [place] [address] Care Team Providers Care Digital Sales Director Name Role Phone Dr. Tricia Mccabe Primary Care Provider Un available Diana Luo Unavailable [phone] REASON FOR VISIT SCIT (Aeroallergen) Encounters Encounter Location Date Provider Diagnosis [facility] [address] [place] [address] 11/26/2024 Diana Luo Plan Of Treatment No Information Progress Notes * Aaron IBARRAOB:1975 (49 yo M)Acc No.[id number]:11/26/2024 SCIT-Aeroallergen Patient: Bello COOPER Provider: Heidi Luo MD :1975 A ge:48 Y S ex:Male Date:11/26/2024 Address:[address] [place] [phone] Pcp:Dr. Tricia Mccabe Subjective: * Chief Complaints: * 1 . SCIT (Aeroallergen). * Medical History: Objective: * Vitals: Assessment: Plan: * Treatment: * Billing Information: * Visit Code: * Procedure Codes: * Electronic signature of Natalya Luo MD on 03/13/2025 at 06:04 PM MACHINE CERAMIC COATER Sign off status: Pending * Provider: Heidi Luo MD Date: 0 11/26/2024 Generated for Ede mccray/Johnny/Ranjan on: 1 05/14/2024 06:04 PM MACHINE CERAMIC COATER
--- OUTSIDE RECORDS SUMMARY | 2024-12-01 10:10 | XMS_ITS ---
Author Organization [facility] [place] ([address]) Address [address] [facility] [address] [place] [address] Care Team Providers Care Patients Transporter Name Role Phone Dr. Tricia Mccabe Primary Care Provider Un available Diana Luo Unavailable [phone] REASON FOR VISIT SCIT - Traditional Schedule Allergy Immunotherapy Encounters Encounter Location Date Provider Diagnosis [facility] [address] [facility] [address] [place] [address] 12/01/2024 Diana Luo Allergic rhinitis du e to pollen J30.1 ; Other allergic rhinitis J30.89 ; Allergic rhinitis due to animal (cat) (dog) hair and dander J30.81 and Other chronic allergic conjunctivitis H10.45 Assessments Encounter Date Diagnosis (ICD Code) Assessment Notes Treatment Notes Treatment Clinical Notes Section Notes 12/01/2024 Allergic rhinitis due to pollen (ICD-10 - J30.1) 12/01/2024 Other allergic rhinitis (ICD-10 - J30.89) 12/01/2024 Allergic rhinitis due to animal (cat) (dog) hair and dander (ICD-10 - J30.81) 12/01/2024 Other chronic allergic conjunctivitis (ICD-10 - H10.45) Plan Of Treatment Next Appt Details Follow Up: As scheduled, Jovana son: Progress Notes * Aaron IBARRAOB:1975 (49 yo M)Acc No.[id number]:12/01/2024 SCIT-Aeroallergen Patient: Bello COOPER Provider: Heidi Luo MD :1975 A ge:48 Y S ex:Male Date:12/01/2024 Address:[address] [place], [place] [phone] Pcp:Dr. Tricia Mccabe Subjective: * Chief Complaints: [...] Information: * Visit Code: * Procedure Codes: 41809 IMMUNOTHERAPY INJECTIONS. * Electronic signature of Natalya Luo MD on 03/13/2025 at 06:04 PM VOTING MACHINE MECHANIC Sign off status: Pending * Provider: Heidi Luo MD Date: 0 12/01/2024 Generated for Ede mccray/Johnny/Ranjan on: 1 05/14/2024 06:04 PM VOTING MACHINE MECHANIC History and Physical Notes * HPI (History [...]
--- NOTE | ~2025-03-13 | CT_ITS ---
EXAMINATION: CT lumbar spine wo con DATE: 03/13/2025 18:52 INDICATION: 49-year-old with low back pain. No history of trauma. TECHNIQUE: Computed tomography (CT) of the lumbar spine was performed without intravenous contrast. Automated exposure control and iterative reconstruction technique were employed. The dose-length product was 631.07 mGy-cm. COMPARISON: None FINDINGS: 5 nonrib-bearing lumbar segments are present. No acute bony lesions of lumbar vertebrae. Mild degenerative disc changes at L3- 4, L4-5 levels. Mild facet arthropathy at L4-5 level with bulging annulus causing mild to moderate bi-foraminal narrowing. Paravertebral soft tissues are unremarkable. IMPRESSION: 1. No acute or focal bone changes of lumbar vertebrae. For 2 mild degenerative disc changes and facet arthropathy as described above predominantly at L4-5 level mild to moderate bi-foraminal narrowing. 2. Paravertebral soft tissues do not show acute findings. Reviewed, dictated and finalized at location T. ER/WAITRESS TAKE OUT IMPRESSION: 1. No acute or focal bone changes of lumbar vertebrae. For 2 mild degenerative disc changes and facet arthropathy as described above predominantly at L4-5 lev el mild to moderate bi-foraminal narrowing. 2. Paravertebral soft tissues do not show acute findings.
[2025-03-13 16:27] VITALS: BP 125/81; PULSE 89; RESP 20; TEMP 36.8; O2SAT 100
--- NOTE | 2025-03-13 17:43 | PC.NURSE ---
patient has been taking mobic and tylenol without relief at home. patient has followed up with PCP and has been doing PT exercises.
--- OUTSIDE RECORDS SUMMARY | 2025-03-13 18:05 | XMS_ITS | Clinical Summary ---
Author Organization [facility] Address [address] [facility] [place] [address] Care Team Providers Care Certified Legal Investigator Name Role Phone [address] Primary Care Prov ider Source Comments [facility]non-owned Affiliates and Associated Physician Practices is amultiple site organization consisting of ambulatory clinics and hospital sitesin [place], [place], [place] and [place]. This disclosure is being madepursuant to the Care Everywhere program and may not contain all information available regarding this patient. Last updated 17.[facility] Allergies No known active allergies Medications * Be aware that medications may not be up to date on this document. Alwaysverify current medications with the patient. Acetaminophen (TYLENOL) 325 MG CAPS Take by mouth as needed Active hydrOXYzine hcl (ATARAX) 50 MG tablet Take 1 tablet by mouth 3 times daily as needed for Itching 30 tablet 03/10/2019 Active fluticasone-chelsey meterol (ADVAIR DISKUS) 500-50 MCG/DOSE inhaler 05/20/2020 Active montelukast (SINGULAIR) 10 MG tablet 11/19/2019 Active tacrolimus (PROTOPIC) 0.1 % ointment 05/20/2020 Active Active Problems Problem Noted Date Diagnosed Date Other and unspecified hyperlipidemia 11/08/2020 Overview (11/08/2020): -Mild HHLP noted on prior labs -no meds -will repeat labs for update -Mild HHLP noted on prior labs -no meds -will repeat labs for update Asthma 11/08/2020 Social History Tobacco Use Types Packs/Day Years Used Date Smoking Tobacco: Never Smokeless Tobacco: Never Alcohol Use Standard Drinks/Week Comments Yes 0 (1 standard drink = 0.6 oz pur e alcohol) occasional Sex and Gender Information Value Date Recorded Sex Assigned at Not on file Legal Sex Male 10:15 AM TOOL SMITH Gender Identity Not on file Sexual Orientation Not on file Last Filed Vital Signs Vital Sign Reading Time Taken Comments Blood Pressure 124/82 03/10/2019 10:32 AM TOOL SMITH Pulse 60 03/10/2019 10:32 AM TOOL SMITH Temperature 36.4 C (97.5 F) 03/10/2019 9:53 AM TOOL SMITH Respiratory Rate 16 03/10/2019 9:53 AM TOOL SMITH Oxygen Saturation 99% 03/10/2019 10:32 AM TOOL SMITH Inhaled Oxygen Concentration - - Weight 99.8 kg (220 lb) 11/08/2020 1:10 PM CDT Height 190.5 cm (6' 3) 11/08/2020 1:10 PM CDT Body Mass Index 27.5 11/08/2020 1:10 PM CDT Plan of Treatment Health Maintenance Due Date Last Done Comments COLOGUARD (AGES 45-75) - COLON CA SCREENING 1975 COLON MONITORING 1975 COLONOSCOPY - COLON CA SCREENING 1975 CT COLONOGRAPHY - COLON CA SCREENING 1975 Colorectal Cancer Screening 1975 FIT - COLON CA SCREENING 1973 FLEX SIG - COLON CA SCREENING 1975 LIPID TESTING 1975 HIV SCREENING 1988 HEPATITIS C SCREENING 11/28/1991 DTAP/TDAP/TD VACCINES (1 - Tdap) 1992 HEPATITIS B VACCINE (1 of 3 - 19+ 3-dose series) 1992 SCREENING FOR DIABETES 11/08/2020 PNEUMOCOCCAL VACCINE 50+ (1 of 1 - PCV) 12/03/2023 ZOSTER VACCINE (1 of 2) 12/03/2023 DEPRESSION SCREENING 03/25/2024 COVID-19 VACCINE (1 - 2024- season) 2024 INFLUENZA VACCINE (#1) 2024 7, 12/29/2013, 12/31/2012, Additional history exists HIB VACCINE Aged Out No longer eligi ble based on patient's age to complete this topic HPV VACCINE Aged Out No longer eligi ble based on patient's age to complete this topic MENINGOCOCCAL (Group B) VACCINE SHARED DECISION-MAKING Aged Out No longer eligible based on patient's age to complete this topic MENINGOCOCCAL GROUPS A/C/Y/W VACCINE Aged Out No longer eligible based on patient's age to complete this topic Insurance Care Teams Certified Legal Investigator Relationship Specialty [facility] [address] [place], [place] [address] PCP - General Family Medicine 03/03/19
--- OUTSIDE RECORDS SUMMARY | 2025-03-13 18:05 | XMS_ITS | Patient Health Record ---
Author Organization [facility] [place] ([address]) Address [address] [place] [address] Care Team Providers Care Front Desk Receptionist Name Role Phone Dr. Tricia Mccabe Primary Care Provider Un available Robert Luon Unavailable [phone] Allergies No Known Allergies Reason For Referral No Information Medications Medication SIG (Take, Route, Frequency, Duration) Notes Start Date End Date Status LEVOCETIRIZINE DIHYDROCHLORIDE 5 mg 1 tab(s) orally once a day (in the evening); Duration: 90 days Active EpiPen 2-Steven 0.3 mg as directed intramuscularly once; Duration: 30 days Active Levocetirizine Dihydrochloride 5 MG 1 tab(s) orally once a day (in the evening); Duration: 90 days Active Azelastine HCl 137 MCG/SPRAY 2 spray(s) in each nostril 2 times a day; Duration: 90 days 04/01/2023 Active EPIPEN 2-STEVEN 0.3 mg as directed intramuscularly once; Duration: 30 days Active EPINEPHRINE AUTO-INJECTOR 0.3 MG DIRECTED INTRAMUSCULARLY ONCE; Duration: 1 DAYS *Please review for potential replacement for e-prescription and drug interaction check* Active ASTELIN 137 MCG/INH 2 SPRAY(S), EACH NOSTRIL INTRANASALLY TWICE A DAY; Duration: 90 DAYS *Please review for potential replacement for e-prescription and drug interaction check* Active ASTELIN 137 MCG/INH 2 SPRAY(S), EACH NOSTRIL INTRANASALLY TWICE A DAY; Duration: 90 DAYS *Please review for potential replacement for e-prescription and drug interaction check* Active Trelegy Ellipta 200 MCG-62.5 MCG-25 MCG/INH 1 PUFF(S) INHALED ONCE A DAY *Please review and pick correct strength-formulat ion from [employer] options. If intended option is not shown, discontinue and re-order from Quick Search* Active CLOBETASOL (EQV-TEMOVATE) 0.05% 1 YUKO APPLIED TOPICALLY 2 TIMES A DAY; Duration: 14 DAY(S) *Please review for potential replacement for e-prescription and drug interaction check* Active AZELASTINE HYDROCHLORIDE NASAL 137 mcg/inh 2 spray(s) in each nostril 2 times a day; Duration: 90 days 04/01/2023 Active TRELEGY ELLIPTA 200 mcg-62.5 mcg-25 mcg/inh 1 puff(s) inhaled once a day Active EPIPEN 2-STEVEN 0.3 mg as directed intramuscularly once; Duration: 30 days Active Social History Tobacco Use: Social History Observation Description Date Details (start date - stop date) Never Smoker NA - NA Smoking Smart Form: Question Answer Notes Are you a: never smoker Problems Problem Type SNOMED Code ICD Code Onset Dates Problem Status W/U Status Risk Notes Problem Chronic allergic conjunctivitis (26885926) Other chronic allergic conjunctivitis (H10.45) Active confirmed Problem Allergic rhinitis caused by pollen (disorder) (06714196) Allergic rhinitis due to pollen (J30.1) Active confirmed Problem Allergic rhinitis caused by animal hair and dander (986625320409081) Allergic rhinitis due to animal (cat) (dog) hair and dander (J30.81) Active confirmed Problem Allergic rhinitis (09580999) Other allergic rhinitis (J30.89) Active confirmed Problem Chronic rhinitis (29676456) Chronic rhinitis (J31.0) Active confirmed Problem Uncomplicated mild persistent asthma (059131669) Mild persistent asthma, uncomplicated (J45.30) Active confirmed Problem Uncomplicated moderate persistent asthma (741859734) Moderate persistent asthma, uncomplicated (J45.40) Active confirmed Problem Uncomplicated severe persistent asthma (163747558) Severe persistent asthma, uncomplicated (J45.50) Active confirmed Problem Allergic rhinitis caused by pollen (disorder) (29334762) Allergic rhinitis due to pollen (J30.1) Active confirmed Problem Allergic rhinitis caused by animal hair and dander (341915605842901) Allergic rhinitis due to animal (cat) (dog) hair and dander (J30.81) Active confirmed Problem Allergic rhinitis (79833841) Other allergic rhinitis (J30.89) Active confirmed Problem Chronic allergic conjunctivitis (55567391) Other chronic allergic conjunctivitis (H10.45) Active confirmed Encounters Encounter Location Date Provider Diagnosis [facility] [address] [place] [address] 04/22/2024 Diana Luo Allergic rhinitis du e to pollen J30.1 ; Other allergic rhinitis J30.89 ; Allergic rhinitis due to animal (cat) (dog) hair and dander J30.81 and Other chronic allergic conjunctivitis H10.45 [facility] [address] [place] [address] 10/07/2024 Diana Luo Allergic rhinitis du e to pollen J30.1 ; Other allergic rhinitis J30.89 ; Allergic rhinitis due to animal (cat) (dog) hair and dander J30.81 and Other chronic allergic conjunctivitis H10.45 [facility] [address] [place] [phone] 09/09/2024 Diana Luo Allergic rhinitis du e to pollen J30.1 ; Other allergic rhinitis J30.89 ; Allergic rhinitis due to animal (cat) (dog) hair and dander J30.81 and Other chronic allergic conjunctivitis H10.45 [facility] [address] [place] [address] 08/06/2024 Diana Luo Allergic rhinitis du e to pollen J30.1 ; Other allergic rhinitis J30.89 ; Allergic rhinitis due to animal (cat) (dog) hair and dander J30.81 and Other chronic allergic conjunctivitis H10.45 [facility] [address] [place] [address] 07/01/2024 Diana Luo Allergic rhinitis du e to pollen J30.1 ; Other allergic rhinitis J30.89 ; Allergic rhinitis due to animal (cat) (dog) hair and dander J30.81 and Other chronic allergic conjunctivitis H10.45 [facility] [address] [place] [phone] 06/03/2024 Diana Luo Allergic rhinitis du e to pollen J30.1 ; Other allergic rhinitis J30.89 ; Allergic rhinitis due to animal (cat) (dog) hair and dander J30.81 and Other chronic allergic conjunctivitis H10.45 [facility] [address] [address] 05/27/2024 Diana Luo Allergic rhinitis du e to pollen J30.1 ; Other allergic rhinitis J30.89 ; Allergic rhinitis due to animal (cat) (dog) hair and dander J30.81 and Other chronic allergic conjunctivitis H10.45 [facility] [address] [address] 05/21/2024 Diana Luo Allergic rhinitis du e to pollen J30.1 ; Other allergic rhinitis J30.89 ; Allergic rhinitis due to animal (cat) (dog) hair and dander J30.81 and Other chronic allergic conjunctivitis H10.[address] [address] 02/08/2025 Diana Luo Assessments Encounter Date Diagnosis (ICD Code) Assessment Notes Treatment Notes Treatment Clinical Notes Section Notes 08/06/2024 Allergic rhinitis due to pollen (ICD-10 - J30.1) 08/06/2024 Other allergic rhinitis (ICD-10 - J30.89) 06/03/2024 Allergic rhinitis due to pollen (ICD-10 - J30.1) 06/03/2024 Other allergic rhinitis (ICD-10 - J30.89) 05/27/2024 Allergic rhinitis due to pollen (ICD-10 - J30.1) 05/27/2024 Other allergic rhinitis (ICD-10 - J30.89) 05/21/2024 Allergic rhinitis due to pollen (ICD-10 - J30.1) 05/21/2024 Other allergic rhinitis (ICD-10 - J30.89) 04/22/2024 Allergic rhinitis due to pollen (ICD-10 - J30.1) 04/22/2024 Other allergic rhinitis (ICD-10 - J30.89) 10/07/2024 Allergic rhinitis due to pollen (ICD-10 - J30.1) 10/07/2024 Other allergic rhinitis (ICD-10 - J30.89) 09/09/2024 Allergic rhinitis due to pollen (ICD-10 - J30.1) 09/09/2024 Other allergic rhinitis (ICD-10 - J30.89) 07/01/2024 Allergic rhinitis due to pollen (ICD-10 - J30.1) 07/01/2024 Other allergic rhinitis (ICD-10 - J30.89) 07/01/2024 Allergic rhinitis due to animal (cat) (dog) hair and dander (ICD-10 - J30.81) 09/09/2024 Allergic rhinitis due to animal (cat) (dog) hair and dander (ICD-10 - J30.81) 10/07/2024 Allergic rhinitis due to animal (cat) (dog) hair and dander (ICD-10 - J30.81) 04/22/2024 Allergic rhinitis due to animal (cat) (dog) hair and dander (ICD-10 - J30.81) 05/21/2024 Allergic rhinitis due to animal (cat) (dog) hair and dander (ICD-10 - J30.81) 05/27/2024 Allergic rhinitis due to animal (cat) (dog) hair and dander (ICD-10 - J30.81) 06/03/2024 Allergic rhinitis due to animal (cat) (dog) hair and dander (ICD-10 - J30.81) 08/06/2024 Allergic rhinitis due to animal (cat) (dog) hair and dander (ICD-10 - J30.81) 08/06/2024 Other chronic allergic conjunctivitis (ICD-10 - H10.45) 06/03/2024 Other chronic allergic conjunctivitis (ICD-10 - H10.45) 05/27/2024 Other chronic allergic conjunctivitis (ICD-10 - H10.45) 05/21/2024 Other chronic allergic conjunctivitis (ICD-10 - H10.45) 04/22/2024 Other chronic allergic conjunctivitis (ICD-10 - H10.45) 09/09/2024 Other chronic allergic conjunctivitis (ICD-10 - H10.45) 07/01/2024 Other chronic allergic conjunctivitis (ICD-10 - H10.45) 10/07/2024 Other chronic allergic conjunctivitis (ICD-10 - H10.45) Plan Of Treatment No Information Insurance Providers Payer Name Payer Address Payer Phone Subscriber Number Group Number Insured Name Patient Relationship to Insured Coverage Start Date Coverage End Date [facility] [address] [place] [phone] [id number] Bello Mahajan Self - patient is the insured 5 Medical (General) History Medical History History ICD Code asthma Eczema Arthritis Surgical History Surgery Date(Month/Year) nasal polypectomy 2009 Hernia Repair 2014 knee shoulder surgery
[2025-03-13] MEDS: KETOROLAC 30 MG/ML VIAL (*BKC) IV PUSH (18:22)
[2025-03-13] MEDS: SODIUM CHLORIDE 0.9% IV 1,000 ML 999 ML IV CONT (18:22)
[2025-03-13] MEDS: diazePAM INJ (*CRX) 10 MG/2 ML SYRINGE 5 MG IV PUSH (18:23)
[2025-03-13 19:04] VITALS: BP 124/78; PULSE 73; RESP 18; TEMP 36.7; O2SAT 98
--- NOTE | 2025-03-13 19:13 | ED.BACK ---
HPI - Back Pain/Injury General Chief Complaint: Back Pain/Injury Stated Complaint: back problems Time Seen by Provider: 03/13/25 17:50 History of Present Illness HPI Narrative: Patient is a 49-year-old male who presents with low back pain. Over last week he has had discomfort since picking up a laundry basket where had sudden onset pain in left low back. He has been on methocarbamol and cyclobenzaprine as well as oral meloxicam. He is feeling better yesterday but then today he started having pain in left low back that is burning. It will occasionally radiate to the groin. No saddle anesthesia or difficulty with urination/defecation. No radiating into the lower extremities. No fevers or chills or sweats. Has not had a longstanding history of back issues. He has the bili follow-up with the doctor at the [facility]. He is looking get some pain control here. It outpatient x-rays did not show any fractures. Related Data Home Medications ?Medication ?Instructions ?Recorded ?Confirmed ?Last Taken ?Type azelastine 137 mcg (0.1 %) nasal 137 mcg intranasal Q12H 02/13/23 10/14/23 Unknown History spray levocetirizine 5 mg tablet (Xyzal) 5 mg PO DAILY 02/13/23 10/14/23 Unknown History dupilumab 200 mg/1.14 mL 200 mg subcut ONCE 08/09/23 10/14/23 Unknown History subcutaneous pen injector (Dupixent) tramadol 50 mg tablet 50 mg PO Q6H PRN 09/03/23 10/14/23 Unknown History Allergies Allergy/AdvReac Type Severity Reaction Status Date / Time No Known Allergies Allergy Verified 03/13/25 16:12 Review of Systems Review of Systems: All systems reviewed & are unremarkable except as noted in HPI and below Constitutional: Constitutional: Reports no additional constitutional complaints Musculoskeletal: Musculoskeletal: Reports no additional musculoskeletal complaints Neurologic: Reports system reviewed and no additional complaints, except as documented PMFSH Past Medical History Medical History Allergic asthma Arthritis of knee, left Arthrosis of left acromioclavicular joint Asthma Asthma exacerbation Close exposure to 2019 novel coronavirus Eczema of both hands Hay fever with asthma History of rotator cuff strain BL Hypoxemia Impingement syndrome of left shoulder Left knee pain Left medial knee pain Meniscal injury 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 Orthopedic aftercare Other specified arthritis, left shoulder Overweight (BMI 25.0-29.9) Seborrheic keratosis Tendinitis of left rotator cuff Surgical History Surgical History History of surgical removal of meniscus of knee Social History Social History Social History: Smoking status: Never smoker Second hand tobacco smoke exposure: No Alcohol intake: current Alcohol use details: Occasionally Substance use: never Substance use type: does not use Lack of Transportation: No Lack of Food: Never True Current Housing: I Have Housing Concerned About Future Housing: No Difficulty Paying Gas/Electric Bills: No Difficulty Paying for Meds: No Currently Unemployed: No Education: Decline to Answer Difficulty w/ Childcare or Family Care: No Living arrangements: with family Additional living arrangements comments: SP[place]SE Occupation/Education: occupation Gender identity (if verbalized by the patient): Male Sexual Orientation (if Verbalized by the Patient): Straight or Heterosexual Spiritual care concerns: No Exam Narrative: GENERAL: Well-appearing, well-nourished, and in no acute distress. HEAD: Normocephalic, atraumatic. ENT: Mucous membranes moist. CHEST: Clear to auscultation. No respiratory distress. HEART: Regular rate and rhythm. Normal peripheral pulses. Back: No reproducible midline tenderness. There is tenderness at left PSIS EXTREMITIES: Normal range of motion. No edema. SKIN: Warm, dry, no rash. NEURO: Alert and oriented x3. PSYCH: Normal mood and affect. Course Course Emergency Course: Patient received IV fluid as well as Toradol and Valium. Imaging study with some biforaminal narrowing in the low back. Recommend discontinuation loss can and starting Medrol Dosepak follow-up with PCP. Vital Signs Vital signs: Vital Signs Temperature 98.3 F 03/13/25 16:27 Pulse Rate 89 03/13/25 16:27 Respiratory Rate 20 03/13/25 16:27 Blood Pressure 125/81 03/13/25 16:27 Pulse Oximetry 100 03/13/25 16:27 Temperature 98.0 F 03/13/25 19:04 Pulse Rate 73 03/13/25 19:04 Respiratory Rate 18 03/13/25 19:04 Blood Pressure 124/78 03/13/25 19:04 Pulse Oximetry 98 03/13/25 19:04 MDM Differential Diagnosis Differential Diagnosis: Lumbar strain, lumbar radiculopathy, cauda equinus, spinal epidural abscess, vertebral fracture Imaging Data Radiologist's impression: ITS Impressions Lumbar Spine CT 03/13/25 18:53 IMPRESSION: 1. No acute or focal bone changes of lumbar vertebrae. For 2 mild degenerative disc changes and facet arthropathy as described above predominantly at L4-5 level mild to moderate bi-foraminal narrowing. 2. Paravertebral soft tissues do not show acute findings. Discharge Plan Discharge Clinical Impression: Acute lumbar radiculopathy, Acute low back pain Patient Disposition: Home Condition: Stable Instructions: Acute Low Back Pain (ED), Lumbar Radiculopathy (ED) Additional Instructions: Please return to the emergency department if you develop severe pain that is not controlled by pain medications or if you are unable to walk because of pain or weakness. Return to the emergency department immediately if you develop fevers, loss of bowel or bladder control (dribbling of urine or having accidents you wouldn't normally have), inability to urinate, numbness of your genital or anal area, or weakness/numbness of your legs or arms as these could all be signs of a serious medical emergency. Patient Language: Amharic Prescriptions: New methylprednisolone [Medrol (Steven)] 4 mg tablets,dose pack See Rx Instructions .ROUTE .COMPLEX Qty: 21 0RF Rx Instructions: for 6 days No Action levocetirizine [Xyzal] 5 mg tablet 5 mg PO DAILY azelastine 137 mcg (0.1 %) aerosol,spray 137 mcg intranasal Q12H Rx Instructions: administer into each nostril Dupixent Pen 200 mg/1.14 mL pen injector 200 mg subcut ONCE tramadol 50 mg tablet 50 mg PO Q6H PRN Patient Comments: as per pain management gabapentin 300 mg capsule 300 mg PO BID Qty: 60 0RF prednisone 10 mg tablet 10 mg PO DAILY Qty: 30 0RF Rx Instructions: Take PO 4 tabs daily x3 days, 3 tabs daily x3 days, 2 tabs daily x3 days, 1 tab daily x3 days tizanidine 4 mg tablet 4 mg PO QHS PRN (Reason: muscle spasticity) Qty: 60 0RF Trelegy Ellipta 200-62.5-25 mcg blister with device See Rx Instructions .ROUTE .COMPLEX Qty: 180 1RF Dose Instruction: USE 1 INHALATION DAILY RINSE AND SPIT Rx Instructions: USE 1 INHALATION DAILY RINSE AND SPIT Follow-up/Referrals: PHYSICIAN NOT ON STAFF,NONSTAFF [Primary Care Provider]
[2025-03-13 19:58] VITALS: BP 128/78; PULSE 87; RESP 16; O2SAT 97
== END 2025-03-13 20:08 | disposition home or self-care (01) ==
PROVIDERS: Emergency Provider Emergency Medicine
DX: M54.16 Radiculopathy, lumbar region (principal); J45.909 Unspecified asthma, uncomplicated; M17.12 Unilateral primary osteoarthritis, left knee; M19.012 Primary osteoarthritis, left shoulder; Z85.828 Personal history of other malignant neoplasm of skin
CPT/HCPCS: 72131; 96361; 96374; 96375; 99284; J1885; J3360; J7030